=== PATIENT | female | born 1940 | race Caucasian/White ===

== ENCOUNTER 2019-08-17 07:52 | Day surgery (SDC) | payer MEDICARE, SELFPAY ==
[2019-08-13 13:40] VITALS: BMI 23.1
[2019-08-17] VITALS (12 sets, daily range): BP systolic 110–185; BP diastolic 64–100; PULSE 61–83; RESP 12–80; TEMP 35.9–37.2; O2SAT 94–99; BMI 23.1
[2019-08-17] MEDS: LACTATED RINGERS 1,000 ML 42 ML IV (08:30)
--- NOTE | 2019-08-17 09:18 | PM.PREOP ---
Pre-operative Note Interval Note History & Physical reviewed/Exam performed by Physician: Yes Changes to H&P: No
--- NOTE | 2019-08-17 09:20 | PM.GYNHP.1 ---
History of Present Illness History of Present Illness Reason for admission: other (Cystocele) Narrative: Mahnaz Sutherland is a 79 year old female admitted for sacrospinous ligament fixation [facility] Medical History (Updated 08/17/19 @ 09:22 by Jenifer Shah MD) Cystocele (Acute) HTN (hypertension) (Acute) Surgical History (Updated 08/17/19 @ 09:22 by Jenifer Shah MD) History of bladder suspension procedure Status post hysterectomy Social History household members: none Smoking Status: Never smoker Meds Home Medications and Allergies Home Medications Medication Instructions Recorded Confirmed Type aspirin 81 mg PO QDAY #0 01/27/18 08/17/19 History latanoprost [Xalatan] 1 drp OU HS #0 01/27/18 08/17/19 History lisinopril [Zestril] 20 mg PO QDAY #0 01/27/18 08/17/19 History timolol maleate 1 drp OPHTH QDAY #0 01/27/18 08/17/19 History hydrocodone 5 mg-acetaminophen 325 1 tab PO Q4-6H PRN #20 tab 07/18/19 08/13/19 Rx mg tablet Allergies Allergy/AdvReac Type Severity Reaction Status Date / Time No Known Drug Allergies Allergy Verified 07/18/19 07:49 Review of Systems Review of Systems Narrative: Patient with symptomatic cystocele post mesh anterior and posterior repair ROS Unobtainable: All systems reviewed & are unremarkable except as noted in HPI and below Exam Vital Signs (past 8 hours): - 08/17/19 08:08 Temperature 97.8 F Pulse Rate 83 Respiratory Rate 16 Blood Pressure 185/100 H Pulse Oximetry 97 Oxygen Delivery Method Room Air Narrative Exam Narrative: Principal diagnosis: Cystocele Planned procedure: Sacrospinous ligament fixation with repair of cystocele History of present illness: Patient is a 79-year-old who more than 10 years ago had repair of her cystocele with mesh. She was doing well for many years but she fell and felt a tearing sensation and began noticing recurrence of her cystocele. She is now having more difficulty emptying her bladder and incontinence. We tried a pessary which that was not successful. Patient does not want to consider colpocleisis so we will attempt to repair her cystocele by reattaching the mesh graft to her sacrospinous ligament. Physical exam: HEENT exam within normal limits. Lungs are clear to auscultation percussion. Heart is regular rate and rhythm no S3-S4 or murmurs. Abdomen is soft, nontender. Normal external genitalia. Cystocele bulges to the hymen with standing Valsalva. The graft is intact on the right side but it is loose in the left deep edge of the graft. She is status post hysterectomy. No rectocele. Consent form was reviewed with the patient. Risk of damage to the bladder, intestine were discussed. Risk of infection and bleeding discussed. Possible inability to finish the procedure if the scar tissue does not allow. Consent form was signed and copy offered to the patient. Patient will be overnight in the hospital with a vaginal packing and Kulkarni. Assessment & Plan Assessment & Plan narrative: Cystocele with history of mesh repair. Reattachment of mesh to the left sacrospinous ligament .
[2019-08-17] MEDS: CEFAZOLIN 2 GM/100 ML FROZ.PIGGY IV (09:40)
--- NOTE | 2019-08-17 09:52 | SUR.OPER ---
Lithotomy on padded OR bed, head on pillow, arms secured on padded arm boards at <90 degrees abduction. Legs secured in padded yellow fins stirrups.
[2019-08-17] MEDS: BUPIVACAINE 0.5% W/ EPI (PF) VIAL 30 ML INJ (09:56)
--- NOTE | 2019-08-17 10:41 | PM.OP.1 ---
Operative Date/Time/Diagnoses Date of procedure: 08/17/19 Time of procedure: 10:41 Pre-op diagnosis: Cystocele Post-op diagnosis: same Procedure & Clinicians Procedure: Sacrospinous ligament fixation Same procedure as scheduled: Yes Indications: Cystocele after mesh anterior repair Surgeon: Jenifer Shah Click Yes if Unassisted: Yes Anesthesia Type: General Operative Notes Findings: Cystocele with detached edge of mesh on the left side posterior Closure Type: primary Specimen(s): none sent Applied: catheter and other (Vaginal packing) Estimated Blood Loss (mL): 2 Blood products transfused: none Procedure in detail: Patient was brought to the operating room where she underwent general anesthesia. She was placed in low Yellofin stirrups and prepped and draped in the usual sterile fashion. A check system was reviewed with the staff in the room prior to beginning the case. 2 g Ancef were in prior to beginning the case. Warming was with Addy Hugger. Pulsatile stockings were in place and functional. The left side of the vaginal apex was injected with Marcaine with epinephrine. An incision was made with the scalpel. The dissection was undertaken bluntly down to the sacrospinous ligament on the left side. Dissection was undertaken to the edge of the mesh that had been detached from the ligament. The Capio needle using 0 Prolene suture was placed through the sacrospinous ligament x2. Rectal exam did not reveal any sutures in the rectum. The suture was placed through the mesh x2. The sutures were tied down to the sacrospinous ligament. The incision was closed with 2 0 Vicryl suture. Kulkarni catheter and vaginal packing placed. Counts of instruments and sponges were correct. Patient went to recovery room in good condition. Complications: none Post-operative Condition: stable Disposition: Acute Care Plan for aftercare: Will remove packing and Kulkarni in 6 hours home in a.m. if stable
[2019-08-17] MEDS: LACTATED RINGERS 1,000 ML 100 ML IV ×2 (11:30→20:10)
--- NOTE | 2019-08-17 12:33 | PC.NURSE ---
Addendum entered by Sommer Black R.N. 08/17/19 15:19: Pt had minimal amount of bloody drainage to kristen pad. Given tylenol and ibuprofen for 5/10 pain and helpful. Original Note: Assess- Pt up to floor around 1115. She has some packing to her vagina and a rich catheter that is putting out yellow urine. Pt has ivf of LR ar 125cc/hr. She complained of slight nausea and this has seemed to resolve. Pt visiting with her daughter at this time.
[2019-08-17] MEDS: ONDANSETRON 4 MG/2 ML INJ IV (12:49)
[2019-08-17] MEDS: LISINOPRIL 20 MG TABLET PO (14:46)
[2019-08-17] MEDS: ACETAMINOPHEN 325 MG TABLET 650 MG PO (14:47)
[2019-08-17] MEDS: IBUPROFEN 600 MG TABLET PO (14:49)
[2019-08-17] MEDS: HYDROCODONE/ACET 5/325 TABLET 2 TAB PO ×2 (16:37→23:24)
--- NOTE | 2019-08-17 17:47 | PM.PNPO.1 ---
Subjective Subjective Date Patient Seen: 08/17/19 Time Patient Seen: 17:47 Interval history: Patient is doing well with minimal pain Exam Vital Signs (past 8 hours): - 08/17/19 10:15 08/17/19 10:20 08/17/19 10:25 Temperature 98.7 F 98.7 F Pulse Rate 77 78 75 Respiratory Rate 19 13 80 H Blood Pressure 134/79 141/96 H 157/90 H Pulse Oximetry 98 98 97 08/17/19 10:35 08/17/19 10:45 08/17/19 11:15 Temperature 97.6 F 97.6 F Pulse Rate 65 70 68 Respiratory Rate 12 18 16 Blood Pressure 150/98 H 110/95 H 151/88 H Pulse Oximetry 98 94 96 08/17/19 12:40 08/17/19 13:45 08/17/19 14:10 Temperature 97.6 F 96.6 F L 97.0 F L Pulse Rate 61 75 80 Respiratory Rate 16 16 16 Blood Pressure 169/96 H 171/94 H 142/64 H Pulse Oximetry 99 98 98 08/17/19 15:39 Temperature 97.2 F L Pulse Rate 74 Respiratory Rate 18 Blood Pressure 158/92 H Pulse Oximetry 99 Oxygen Delivery Method Room Air Oxygen Flow Rate 0 Narrative Exam Narrative: Vaginal packing removed. If patient ambulatory the Kulkarni catheter can be removed at any time. Assessment & Plan Post-op Assessment and plan (1) Cystocele: Postoperative Procedures: Procedures Operation Date: 08/17/19 09:15 Actual Procedures Side Surgeon p Sacrospinos ligament fixation Jeniefr Shah MD Postoperative status: doing well Postoperative plan: routine post-op care (A remove Kulkarni at any time patient will be discharged home in a.m.)
[2019-08-17] MEDS: DOCUSATE 250 MG CAPSULE PO (20:10)
[2019-08-18] VITALS: BP 147/89; PULSE 73; RESP 16; TEMP 37.1; O2SAT 95
[2019-08-18 04:59] VITALS: BP 155/83; PULSE 67; RESP 16; TEMP 37; O2SAT 95
--- NOTE | 2019-08-18 05:02 | PC.NURSE ---
5858 Pt. requested to take out her rich catheter, discontinued without any problem tolerating procedure well. Tip of the catheter intact, small amount of dried serous drainage in the kristen-pad. Reports i feel like having a bowel movement. Assisted & she ambulated to the BR. She was sitting in the toilet & she C/O dizziness & skin was clammy, states I'm a little sweaty. Assisted her back to bed & after resting in bed for 10 mins. she states I'm okay now, it only happened when I was in the BR. Denies any pain & no C/O nausea, will cont. POC & monitor.
[2019-08-18] MEDS: LACTATED RINGERS 1,000 ML 100 ML IV (05:26)
[2019-08-18 08:00] VITALS: BP 128/76; PULSE 66; RESP 16; TEMP 36.7; O2SAT 95
[2019-08-18] MEDS: HYDROCODONE/ACET 5/325 TABLET 2 TAB PO ×2 (08:27→12:23)
[2019-08-18] MEDS: DOCUSATE 250 MG CAPSULE PO (08:27)
--- NOTE | 2019-08-18 10:21 | PM.DS.1 ---
History of Present Illness History of Present Illness Date Patient Seen: 08/18/19 Time Patient Seen: 10:22 Chief complaint: *[id number] Narrative: Patient continues to have rectal pain. she is unable to urinate. She is ambulatory and tolerating regular diet. Discharge Providers Provider Discharge Date: 08/18/19 Discharge provider: Jenifer Shah MD Summary Hospital Course Discharge Diagnosis: Cystocele after anterior mesh surgery Hospital Course: Patient underwent a sacrospinous ligament fixation to reattached her mesh to her left sacrospinous ligament. The procedure went well but the patient was unable to urinate after removal of her Kulkarni catheter. She will be taught how to manage the Kulkarni and will follow up for recheck of postvoid residual on 08/21/2019 Status at Discharge Cognitive/behavioral status at discharge: oriented Functional status at discharge: independent ambulation Overall status at discharge: patient is progressing back to baseline Time Spent with Patient Time spent: Less than 30 minutes Exam Vital Signs (past 8 hours): - 08/18/19 04:59 08/18/19 08:00 Temperature 98.6 F 98.1 F Pulse Rate 67 66 Respiratory Rate 16 16 Blood Pressure 155/83 H 128/76 Pulse Oximetry 95 95 Oxygen Delivery Method Room Air Oxygen Flow Rate 0 Narrative Exam Narrative: Patient's abdomen is soft, nontender. Normal external genitalia. Finger in the vagina does not reveal any abnormalities with minimal tenderness. Discharge Plan Discharge Plan Patient Disposition: Home Discharge Med Rec/Prescriptions Prescriptions: New nitrofurantoin monohyd/m-cryst [Macrobid] 100 mg capsule 100 mg PO BID Qty: 10 RF: 0 Continued lisinopril [Zestril] 20 MG tablet 20 mg PO QDAY Qty: 0 RF: 0 latanoprost [Xalatan] 0.005 % drops 1 drp OU HS Qty: 0 RF: 0 aspirin 81 MG tablet,delayed release (DR/EC) 81 mg PO QDAY Qty: 0 RF: 0 timolol maleate 0.5 % drops 1 drp OPHTH QDAY Qty: 0 RF: 0 hydrocodone-acetaminophen 5-325 mg tablet 1 tab PO Q4-6H PRN (Reason: pain) Qty: 20 RF: 0 Follow up/Referrals: Jenifer Shah MD [Physician] - 08/21/19 (postvoid residual check) Discharge Orders: Discharge (Order); Ordered 08/18/19 Ordered By: Jenifer Shah Provider Discharge Instructions Diet: Regular Activity: Do not lift over 20 lb Catheter: 2-way Kulkarni Skin/Wound/Dressing Care Report to your healthcare provider any signs of infection, such as:: chills, fever and increased pain Discharge Data Attending Provider: Jenifer Shah
--- NOTE | 2019-08-18 10:57 | PC.NURSE ---
Addendum entered by Monika Holly R.N. 08/18/19 12:43: DC - reviewed dc instructions with pt, dtr, saline lock removed, intellectual property lawyer assisted with clothing, escorted via wc to dtrs car. Addendum entered by Monika Holly R.N. 08/18/19 12:29: DC - Per Dr. Shah, the macrodantin script not needed after pt voided adequately, was intended for pt if home w/rich. Pt has narcotic script filled and at home. Advised continue with stool softeners, other laxatives, prn, admin norco 5/325mg x1 tab after lunch prior to discharge home. Original Note: AM NOTE - at bedside report, pt had just been up to br to attempt void, unsuccessful, per night RN, the rich was dc'd at 0415, had bladder scan check now and pt had 620ml volume, unsuccessful 2nd attempt and Dr. Shah called and new order rec'd for in/out catheter, emptied 625ml, states rectal discomfort and after breakfast, given norco 5/325mg x 1 tab that relieved her discomfort, had a 2nd attempt to void mid am up again and voided 400ml, Dr. Shah in at this time and informed, per MD, no need for pvr check, may dc home w/o catheter.
[2019-08-18 12:35] VITALS: BP 155/95; PULSE 72; RESP 16; TEMP 36.3; O2SAT 97
--- NOTE | 2019-08-18 12:51 | CM.DANOTE ---
DCP/Assessment: Reviewed chart Patient is a 79yr old female admitted to [facility] for elective cystocele performed by Dr. Shah on 08-17-19. PCP is Dr. Scott. Primary payor is 1)Medicare 2)[facility]. Met with patient explained CM/SW role. Patient reports that she resides alone in [place] and is I with all ADL's. Patient has supportive family and does not anticipate having any d/c planning needs. P: Home today without needs. ADRIANA Cummings Discharge Planning/Care Management CM Discharge Assessment Start: 08/18/19 12:46 Freq: Status: Active Protocol: Document 08/18/19 12:46 KJS (Rec: 08/18/19 12:51 KJS [id number]) Discharge Planning Assessment Assigned Urology Nurse ADRIANA Cummings Advance Directives? Yes History Provided By Patient,Medical Record Prior Living Arrangements House Household Members none Type of transporation used prior to Drives own vehicle admit Independent with ADL's Yes Is patient alert and oriented? Yes Caregiver for Another No Barriers to Discharge No Discharge Plan Home Transportation Arrangement Family to provide transport Referrals Initiated None needed Whiteboard Updated in Patient Room with Yes name and ext. # of Urology Nurse Review Status In Process Next Review Type Continued Stay Review Pre-Anesthesia Assessment Start: 08/13/19 13:40 Freq: Status: Active Protocol: Document 08/13/19 13:40 CAB (Rec: 08/13/19 13:45 CAB [id number]) Pre-Anesthesia Assessment Patient Information Reviewed Via Chart Review Seen Specialist in Last 12 Months Yes Specialist Seen Non Cdl Driver Primary Language Malay Home Weatherizing Worker Required No Height 171.45 cm Weight 68.039 kg Body Mass Index (BMI) 23.1 Barriers to Learning None Other Aids No Anesthesia Review Requested No Operational Risk Analyst No Smoking Status Never smoker History of Falling (Recent or History of Yes ) Patient is completely paralyzed or No completely immobile Mental Status Oriented to own ability Is patient on oxygen? No Currently Taking a Beta Maggie No Anti-Coagulant Therapy No Has a Switch House Operator No Cardiac Testing No Hx Pacemaker/ICD No Pacemaker Rep Required? No Cardiac Clearance Received Not Applicable Urinary Catheter Present No Hx Urinary Self Catheterization No Diabetes No Patient No Lactating No Marital Status 2018 Patient Discharge Plan Description Return Home
== END 2019-08-18 13:00 | disposition home or self-care (01) ==
LOC: OR 07:55 → AC 07:56
PROVIDERS: Visit Provider Specialist
PROC: (CPT 57282; principal; 2019-08-17 09:15)
DX: N81.10 Cystocele, unspecified (principal); Z87.448 Personal history of other diseases of urinary system; Z98.890 Other specified postprocedural states; I10 Essential (primary) hypertension
CPT/HCPCS: 57282; J0690; J2405; J2704; J3010